=== PATIENT | female | born 1980 | race Caucasian/White ===

== ENCOUNTER 2016-08-10 20:12 | Emergency (ER) | payer BC ==
[2016-08-10] MEDS ORDERED: Famotidine IV* 10 MG/ML 2 ML (20 mg) IV ONE (21:02)
[2016-08-10] MEDS ORDERED: NS 0.9% 1000 ML* 2,000 ML IV ONE (21:02)
[2016-08-10] MEDS ORDERED: Ondansetron INJ* 2 MG/ML VIAL IV ONE ×2 (21:02→21:56)
[2016-08-10 21:32] LABS: Hematocrit 42 % (35-47); Hemoglobin 14.1 g/dl (12.0-16.0); Mean Corpuscular HGB Conc 34 g/dl (31-36); Mean Corpuscular Hemoglobin 29 pg (27-31); Mean Corpuscular Volume 85 fL (80-97); Mean Platelet Volume 10 um3 (7.4-10.4); Red Blood Count 4.94 10^6/ul (4.0-5.4); Red Cell Distribution Width 15 % (10.5-15); White Blood Count 9.4 10^3/ul (3.5-10.8)
[2016-08-10 21:47] LABS: ALT 14 U/L (7-52); AST 17 U/L (13-39); Albumin 3.9 g/dL (3.2-5.2); Alkaline Phosphatase 41 U/L (34-104); Amylase 16 U/L (29-103); Anion Gap 11 mmol/L (2-11); BUN/Creatinine Ratio 14.3 (8-20); Blood Urea Nitrogen 11 mg/dL (6-24); C Reactive Protein 56.96 mg/L (< 5.00); CO2 Carbon Dioxide 23 mmol/L (22-32); Chloride 103 mmol/L (101-111); EGFR African American 108.5 (>60); EGFR Non-African American 84.4 (>60); Globulin 2.3 g/dL (2-4); Glucose 112 mg/dL (70-100); Lipase < 10 U/L (11.0-82.0); Potassium 3.5 mmol/L (3.5-5.0); Sodium 137 mmol/L (133-145); Total Protein 6.2 g/dL (6.4-8.9)
[2016-08-10] MEDS ORDERED: Ondansetron ODT TAB* 4 MG PO ONE (23:00)
--- NOTE | 2016-08-10 23:01 | ED ---
I, Oh,Soohyun, scribed for Frank Peoples MD on 08/10/16 at 2118 . GI/ HPI - HPI Summary HPI Summary: This 35 y/o female presents to ED for acute n/v/d since 0000 AM today. Pt reports possible sick contact from her son, who started n/v yesterday. Pt reports that her diarrhea is watery but has no blood or mucous. Pt expresses concern to numbness of her bilat hands. Plan of care involving fluid resuscitation is discussed, and pt is agreeable. PSHx includes post- repair. Pt denies any PMHx at this point. She is nonsmoker and nondrinker. - History of Current Complaint Chief Complaint: EDNauseaVomitDiarrh Time Seen by Provider: 08/10/16 21:02 Stated Complaint: VOMITING/DIARRHEA Hx Obtained From: Patient, Medical Records Onset/Duration: Started Hours Ago, Atraumatic, Still Present Timing: Constant Severity: Moderate Current Severity: Moderate Pain Intensity: 7 Location of Pain: Diffuse Pain Characteristics: Dull Associated Signs and Symptoms: Positive: Nausea, Vomiting, Diarrhea. Negative: Blood w/Stool Aggravating Factor(s): Nothing Alleviating Factor(s): Nothing - Allergy/Home Medications Allergies/Adverse Reactions: Allergies Allergy/AdvReac Type Severity Reaction Status Date / Time Codeine Allergy See Comment Verified 01/16/14 08:55 Hydroxyzine AdvReac See Comment Verified 10/20/12 01:00 Sertraline [From Zoloft] AdvReac See Comment Verified 10/20/12 01:00 PMH/Surg Hx/FS Hx/Imm Hx Endocrine/Hematology History: Reports: Hx Blood Transfusions - after hemorrhage with childbirth Denies: Hx Diabetes, Hx Thyroid Disease Cardiovascular History: Denies: Hx Hypertension Respiratory History: Denies: Hx Asthma, Hx Chronic Obstructive Pulmonary Disease (COPD) GI History: Denies: Hx Ulcer Musculoskeletal History: Denies: Hx Rheumatoid Arthritis, Hx Osteoporosis Sensory History: Reports: Hx Contacts or Glasses Opthamlomology History: Reports: Hx Contacts or Glasses Neurological History: Reports: Hx Headaches - r/t neck strain, Hx Migraine - r/ t neck strain Psychiatric History: Reports: Hx Anxiety - Surgical History Surgery Procedure, Year, and Place: hemorrhaged after child - surgery to repair artery Infectious Disease History: No Infectious Disease History: Denies: Hx Hepatitis, Hx Human Immunodeficiency Virus (HIV), Traveled Outside the [place] in Last 30 Days - Family History Known Family History: Positive: Other - Mother -- cervical CA - Social History Alcohol Use: None Substance Use Type: Reports: None Review of Systems Negative: Fever Positive: Abdominal Pain, Vomiting, Diarrhea - watery, Nausea. Negative: Other - blood or mucous in stool Positive: Numbness - bilat hands Negative: Anxious, Depressed All Other Systems Reviewed And Are Negative: Yes Physical Exam - Summary Physical Exam Summary: VITAL SIGNS: Reviewed. GENERAL: Patient is a well developed and nourished female who is lying comfortable in the stretcher. Patient is not in any acute respiratory distress. HEAD AND FACE: Normocephalic and atraumatic. EYES: PERRLA, EOMI x 2, No injected conjunctiva. EARS: Hearing grossly intact. Ear canals and tympanic membranes are WNL. MOUTH: Oropharynx within normal limits. NECK: Supple, trachea is midline, no adenopathy, no JVD. CHEST: Symmetric, no tenderness at palpation LUNGS: Clear to auscultation bilaterally. No wheezing or crackles. CVS: RRR,, S1 and S2 present, no murmurs or gallops appreciated. ABDOMEN: Soft, non-tender. No signs of distention. Positive bowel sounds. No rebound no guarding, and no masses palpated. No abdominal bruit or pulsations. EXTREMITIES: FROM in all major joints, no edema, no cyanosis or clubbing. NEURO: Alert and oriented x 3. No acute neurological deficits. Speech is normal. SKIN: Dry and warm Triage Information Reviewed: Yes Vital Signs On Initial Exam: Initial Vitals Temp Pulse Resp BP Pulse Ox 99 F 91 16 97/69 100 08/10/16 20:14 08/10/16 20:14 08/10/16 20:14 08/10/16 20:14 08/10/16 20:14 Vital Signs Reviewed: Yes Diagnostics - Vital Signs Vital Signs Temp Pulse Resp BP Pulse Ox 08/10/16 20:14 99 F 91 16 97/69 100 - Laboratory Lab Results: Lab Results 08/10/16 08/10/16 Range/Units 21:15 21:15 WBC 9.4 (3.5-10.8) 10^3/ul RBC 4.94 (4.0-5.4) 10^6/ul Hgb 14.1 (12.0-16.0) g/dl Hct 42 (35-47) % MCV 85 (80-97) fL MCH 29 (27-31) pg MCHC 34 (31-36) g/dl RDW 15 (10.5-15) % Plt Count 177 (150-450) 10^3/ul MPV 10 (7.4-10.4) um3 Neut % (Auto) 92.0 H (38-83) % Lymph % (Auto) 3.8 L (25-47) % Storey % (Auto) 3.7 (1-9) % Eos % (Auto) 0 (0-6) % Baso % (Auto) 0.5 (0-2) % Absolute Neuts (auto) 8.6 H (1.5-7.7) 10^3/ul Absolute Lymphs (auto) 0.4 L (1.0-4.8) 10^3/ul Absolute Monos (auto) 0.4 (0-0.8) 10^3/ul Absolute Eos (auto) 0 (0-0.6) 10^3/ul Absolute Basos (auto) 0.1 (0-0.2) 10^3/ul Absolute Nucleated RBC 0.01 10^3/ul Nucleated RBC % 0.1 Sodium 137 (133-145) mmol/L Potassium 3.5 (3.5-5.0) mmol/L Chloride 103 (101-111) mmol/L Carbon Dioxide 23 (22-32) mmol/L Anion Gap 11 (2-11) mmol/L BUN 11 (6-24) mg/dL Creatinine 0.77 (0.51-0.95) mg/dL Est GFR ( Amer) 108.5 (>60) Est GFR (Non-Af Amer) 84.4 (>60) BUN/Creatinine Ratio 14.3 (8-20) Glucose 112 H (70-100) mg/dL Calcium 9.0 (8.6-10.3) mg/dL Total Bilirubin 1.10 H (0.2-1.0) mg/dL AST 17 (13-39) U/L ALT 14 (7-52) U/L Alkaline Phosphatase 41 (34-104) U/L C-Reactive Protein 56.96 H (< 5.00) mg/L Total Protein 6.2 L (6.4-8.9) g/dL Albumin 3.9 (3.2-5.2) g/dL Globulin 2.3 (2-4) g/dL Albumin/Globulin Ratio 1.7 (1-3) Amylase 16 L (29-103) U/L Lipase < 10 L (11.0-82.0) U/L Result Diagrams: 08/10/16 21:15 08/10/16 21:15 Lab Statement: Any lab studies that have been ordered have been reviewed, and results considered in the medical decision making process. GIGU Course/Dx - Course Assessment/Plan: This 35 y/o female presents to ED for acute n/v/d since 0000 AM today. Pt reports possible sick contact from her son, who started n/v yesterday. Pt reports that her diarrhea is watery but has no blood or mucous. Pt expresses concern to numbness of her bilat hands. In the ED course patient was given IV fluids, Zofran and pepcid. After this medications all symptoms have improved. Patient able to tolerate PO w/o nausea and vomiting. I discussed all the findings and test results with the patient and patient. Patient was instructed to return to the emergency room immediately if any of the symptoms return or worsens. They understand and agree. They were explained the possibility of an early abdominal pathology which was not detected at this time despite the physical exam and testing. They understand and agree. Abdominal exam before discharge: Soft,NT. No signs of distention. BS present. No rebound no guarding, and no masses palpated. Patient is alert and oriented. Patient is hemodynamically stable. Patient is to follow up with primary care physician in the next 24 hours. Patient and patients parents agree and understands. - Diagnoses Provider Diagnoses: Nausea, vomiting, and diarrhea Discharge - Discharge Plan Condition: Stable Disposition: HOME Patient Education Materials: Acute Nausea and Vomiting (ED), Acute Diarrhea (ED ) Referrals: Jarad Orta MD [Primary Care Provider] - 2 Days The documentation as recorded by the Daquan caban Soohyun accurately reflects the service I personally performed and the decisions made by , Frank Peoples MD.
[2016-08-10 23:08] VITALS: BP 105/64
== END 2016-08-10 23:07 | disposition home or self-care (01) ==
LOC: ED 20:12
DX: R11.2 Nausea with vomiting, unspecified (principal); R19.7 Diarrhea, unspecified; R20.0 Anesthesia of skin; Z88.5 Allergy status to narcotic agent; Z88.8 Allergy status to other drugs, medicaments and biological substances
CPT/HCPCS: 36415; 80053; 82150; 83690; 85025; 86140; 96361; 96374; 96375; 96376; 99282; A9270-GY; J2405